=== PATIENT | male | born 1995 | race Caucasian/White ===

== ENCOUNTER 2024-09-05 08:57 | Emergency (ER) | payer OTHER ==
--- NOTE | 2024-09-05 09:37 | ED ---
Fever HPI - General Chief Complaint: Fever Stated Complaint: Fever cough Time Seen by Provider: 09/05/24 09:12 Source: patient, family, RN notes reviewed Mode of arrival: ambulatory Limitations: no limitations - History of Present Illness Initial Comments: Patient is a 29 year old male presents the emergency department with chief complaint of cough, fever, and vomiting x 1 day. He states he developed a fever 1 day ago, and has had on and off chills which he has taken Tylenol and Mucinex, which provided relief. He states that he has a cough essentially nonproductive though he has increased nasal congestion, fever chills and bodyaches. He also states he has a headache and lower back pain, and his roommate was sick with something similar a few days ago, which resolved. He denies any SOB, diarrhea or leg pain and states this is not similar to when he had a pulmonary embolism. . - Related Data Previous Rx's Medication Instructions Recorded Acetaminophen Tab [Tylenol Tab] 1,000 mg PO Q6HR #30 tablet 09/05/24 Ibuprofen [Motrin] 800 mg PO Q6HR #30 tab 09/05/24 Allergies Allergy/AdvReac Type Severity Reaction Status Date / Time No Known Allergies Allergy Verified 09/05/24 09:05 Review of Systems ROS Statement: Those systems with pertinent positive or pertinent negative responses have been documented in the HPI. ROS Other: All systems not noted in ROS Statement are negative. Past Medical History Past Medical History: Pulmonary Embolus (PE) History of Any Multi-Drug Resistant Organisms: None Reported Past Surgical History: No Surgical Hx Reported Additional Past Surgical History / Comment(s): blood clot removed Past Psychological History: No Psychological Hx Reported Smoking Status: Current every day smoker Past Alcohol Use History: None Reported Past Drug Use History: Marijuana General Exam Limitations: no limitations General appearance: alert, in no apparent distress, other (fatigued) Head exam: Present: atraumatic, normocephalic, normal inspection Eye exam: Present: normal appearance, PERRL, EOMI. Absent: scleral icterus, conjunctival injection, periorbital swelling ENT exam: Present: normal exam, normal oropharynx, mucous membranes moist Neck exam: Present: normal inspection. Absent: tenderness, meningismus, lymphadenopathy Respiratory exam: Present: normal lung sounds bilaterally. Absent: respiratory distress, wheezes, rales, rhonchi, stridor Cardiovascular Exam: Present: normal rhythm, tachycardia, normal heart sounds. Absent: systolic murmur, diastolic murmur, rubs, gallop, clicks GI/Abdominal exam: Present: soft, normal bowel sounds. Absent: distended, tenderness, guarding, rebound, rigid Back exam: Present: normal inspection Neurological exam: Present: alert, oriented X3, CN II-XII intact Skin exam: Present: warm, dry, intact, normal color. Absent: rash Course Vital Signs 09/05/24 09/05/24 09/05/24 09:05 09:34 10:38 Temperature 102.6 F H 102.6 F H 101.1 F H Pulse Rate 102 H 85 87 Respiratory 20 18 17 Rate Blood Pressure 120/78 132/77 104/62 O2 Sat by Pulse 94 L 95 94 L Oximetry Medical Decision Making - Medical Decision Making Was pt. sent in by a medical professional or institution (, PA, FILE KEEPER, urgent care, hospital, or group home...) When possible be specific @ -No Did you speak to anyone other than the patient for history (EMS, parent, family, police, friend...)? What history was obtained from this source @ -No Did you review nursing and triage notes (agree or disagree)? Why? @ -I reviewed and agree with nursing and triage notes Were old charts reviewed (outside hosp., previous admission, EMS record, old EKG, old radiological studies, urgent care reports/EKG's, group home records)? Report findings @ -No old charts were reviewed Differential Diagnosis (chest pain, altered mental status, abdominal pain women, abdominal pain men, vaginal bleeding, weakness, fever, dyspnea, syncope, headache, dizziness, GI bleed, back pain, seizure, CVA, palpatations, mental hea lth, musculoskeletal)? @ -COVID 19, RSV, influenza, pneumonia, acute bronchitis, URI, this list is not all inclusive EKG interpreted by me (3pts min.). @None X-rays interpreted by me (1pt min.). @ -Chest x-ray shows no acute cardiopulmonary process CT interpreted by me (1pt min.). @ -None done U/S interpreted by me (1pt. min.). @ -None done What testing was considered but not performed or refused? (CT, X-rays, U/S, labs)? Why? @ -None What meds were considered but not given or refused? Why? @ -None Did you discuss the management of the patient with other professionals (professionals i.e. , PA, FILE KEEPER, lab, RT, psych nurse, home health care social worker, electroplater, teacher, correction officer reformatory, manager case)? Give summary @ -No Was smoking cessation discussed for >3mins.? @ -No Was critical care preformed (if so, how long)? @ -No Were there social determinants of health that impacted care today? How? (Homelessness, low income, unemployed, alcoholism, drug addiction, transportation, low edu. Level, literacy, decrease access to med. care, group home, rehab)? @ -No Was there de-escalation of care discussed even if they declined (Discuss DNR or withdrawal of care, Hospice)? DNR status @ -No What co-morbidities impacted this encounter? (DM, HTN, Smoking, COPD, CAD, Cancer, CVA, ARF, Chemo, Hep., AIDS, mental health diagnosis, sleep apnea, morbid obesity)? @ -None Was patient admitted / discharged? Hospital course, mention meds given and route, prescriptions, significant lab abnormalities, going to OR and other pertinent info. @ -Discharge patient is influenza A positive. Patient has no signs distress vitals improved we did discuss alternating Tylenol Motrin as directed return parameters maddi. Undiagnosed new problem with uncertain prognosis? @ -No Drug Therapy requiring intensive monitoring for toxicity (Heparin, Nitro, Insulin, Cardizem)? @ -No Were any procedures done? @ -No Diagnosis/symptom? @ -Influenza A Acute, or Chronic, or Acute on Chronic? @ -Acute Uncomplicated (without systemic symptoms) or Complicated (systemic symptoms)? @ -uncomplicated Side effects of treatment? @ -No Exacerbation, Progression, or Severe Exacerbation? @ -No Poses a threat to life or bodily function? How? (Chest pain, USA, SC, pneumonia, PE, COPD, DKA, ARF, appy, cholecystitis, CVA, Diverticulitis, Homicidal, Suicidal, threat to staff... and all critical care pts) @ -No - Lab Data Lab Results 09/05/24 Range/Units 09:39 Influenza Type A (PCR) Detected A (Not Detectd) Influenza Type B (PCR) Not Detected (Not Detectd) RSV (PCR) Not Detected (Not Detectd) SARS-CoV-2 (PCR) Not Detected (Not Detectd) Disposition Clinical Impression: Influenza A Disposition: HOME SELF-CARE Condition: Stable Instructions (If sedation given, give patient instructions): Influenza (ED) Additional Instructions: Please return to the Emergency Department if symptoms worsen or any other concerns. Prescriptions: Ibuprofen [Motrin] 800 mg PO Q6HR #30 tab Acetaminophen Tab [Tylenol Tab] 1,000 mg PO Q6HR #30 tablet Is patient prescribed a controlled substance at d/c from ED?: No Referrals: Michelle Chu DO [Primary Care Provider] - 1-2 days Time of Disposition: 10:52
[2024-09-05] MEDS: ACETAMINOPHEN TAB 500 MG TAB PO STA (09:39)
[2024-09-05] MEDS: IBUPROFEN 600 MG TAB PO STA (09:40)
--- NOTE | 2024-09-05 10:02 | XR ---
EXAMINATION TYPE: XR chest 2V DATE OF EXAM: 09/05/2024 9:58 AM COMPARISON: None. CLINICAL INDICATION: Male, 29 years old with history of fever, TECHNIQUE: Frontal and lateral views of the chest are obtained. FINDINGS: There is no focal air space opacity, pleural effusion, or pneumothorax seen. The cardiac silhouette size is within normal limits. The osseous structures are intact. IMPRESSION: No acute pulmonary infiltrate. [facility], , 09/05/2024 10:00 AM
[2024-09-05 10:40] VITALS: RESP 17
[2024-09-05 11:05] VITALS: BP 113/98; PULSE 83; TEMP 99.8
== END 2024-09-05 11:05 | disposition home or self-care (01) ==
LOC: EC 08:57
DX: J10.1 Influenza due to other identified influenza virus with other respiratory manifestations (principal); F17.200 Nicotine dependence, unspecified, uncomplicated
CPT/HCPCS: 71046; 87636; 99284